=== PATIENT | male | born 1995 | race Caucasian/White ===

== ENCOUNTER 2017-01-03 00:43 | Emergency (ER) | payer OTHER ==
[2017-01-03] MEDS ORDERED: Ondansetron INJ* 2 MG/ML VIAL IV ONE (01:23)
[2017-01-03] MEDS: NS 0.9% 1000 ML* 3,000 ML IV ONE ×2 (01:37→02:56)
[2017-01-03 02:00] LABS: Hematocrit 53 % (42-52); Hemoglobin 17.6 g/dl (14.0-18.0); Mean Corpuscular HGB Conc 33 g/dl (31-36); Mean Corpuscular Hemoglobin 27 pg (27-31); Mean Corpuscular Volume 81 fL (80-94); Mean Platelet Volume 9 um3 (7.4-10.4); Red Blood Count 6.55 10^6/ul (4.0-5.4); Red Cell Distribution Width 14 % (10.5-15); White Blood Count 10.8 10^3/ul (3.5-10.8)
[2017-01-03 02:11] LABS: ALT 32 U/L (7-52); AST 22 U/L (13-39); Albumin 5.5 g/dL (3.2-5.2); Alkaline Phosphatase 59 U/L (34-104); Anion Gap 13 mmol/L (2-11); BUN/Creatinine Ratio 13.2 (8-20); Blood Urea Nitrogen 16 mg/dL (6-24); C Reactive Protein 6.39 mg/L (< 5.00); CO2 Carbon Dioxide 24 mmol/L (22-32); Calcium 10.4 mg/dL (8.6-10.3); Chloride 100 mmol/L (101-111); EGFR African American 98.3 (>60); EGFR Non-African American 76.5 (>60); Globulin 3.6 g/dL (2-4); Glucose 141 mg/dL (70-100); Lipase < 10 U/L (11.0-82.0); Potassium 4.3 mmol/L (3.5-5.0); Sodium 137 mmol/L (133-145); Total Protein 9.1 g/dL (6.4-8.9)
[2017-01-03] MEDS ORDERED: Ondansetron ODT TAB* 4 MG PO ONE (03:17)
--- NOTE | 2017-01-03 03:26 | ED ---
Leandro Lazar Adam, scribed for Aayush Davis MD on 01/03/17 at 0133 . GI/ HPI - HPI Summary HPI Summary: Pt is a 21 year old male presenting with N/V/D since 18:30. He also reports intermittent abdominal cramps and he believes he has seen blood in his emesis and in his stool. He describes the stool as watery diarrhea that is the color of blood. He reports 8 episodes of vomiting. He denies fever. - History of Current Complaint Chief Complaint: EDNauseaVomitDiarrh Time Seen by Provider: 01/03/17 01:18 Stated Complaint: FLU LIKE SYMPTOMS Hx Obtained From: Patient Onset/Duration: Started Hours Ago, Atraumatic, Still Present Timing: Constant, Lasting Hours Severity: Moderate Current Severity: Moderate Pain Intensity: 4 Location of Pain: Diffuse Pain Characteristics: Cramping Associated Signs and Symptoms: Positive: Hematemesis, Nausea, Vomiting, Blood w/ Stool, Diarrhea Aggravating Factor(s): Nothing Alleviating Factor(s): Nothing - Allergy/Home Medications Allergies/Adverse Reactions: Allergies Allergy/AdvReac Type Severity Reaction Status Date / Time No Known Allergies Allergy Verified 01/03/17 01:01 PMH/Surg Hx/FS Hx/Imm Hx - Immunization History Date of Tetanus Vaccine: utd Date of Influenza Vaccine: unk Infectious Disease History: No Infectious Disease History: Denies: Traveled Outside the [place] in Last 30 Days - Family History Known Family History: Positive: Unknown - Social History Occupation: Student Lives: With Family - Fraternity house Alcohol Use: None Hx Substance Use: No Substance Use Type: Reports: None Hx Tobacco Use: No Smoking Status (MU): Never Smoked Tobacco Review of Systems Negative: Fever Positive: Abdominal Pain, Vomiting, Diarrhea, Nausea, Other - Blood in emesis/ stool All Other Systems Reviewed And Are Negative: Yes Physical Exam Triage Information Reviewed: Yes Vital Signs On Initial Exam: Initial Vitals Temp Pulse Resp BP Pulse Ox 98.8 F 90 16 112/68 99 01/03/17 00:55 01/03/17 00:55 01/03/17 00:55 01/03/17 00:55 01/03/17 00:55 Vital Signs Reviewed: Yes Appearance: Positive: Well-Appearing, No Pain Distress Skin: Positive: Pale Head/Face: Positive: Normal Head/Face Inspection Eyes: Positive: EOMI, CECI ENT: Positive: Other - Dry oral mucosa Neck: Positive: Supple, Nontender Respiratory/Lung Sounds: Positive: Clear to Auscultation, Breath Sounds Present Cardiovascular: Positive: RRR Abdomen Description: Positive: Nontender, Soft Bowel Sounds: Positive: Hypoactive Musculoskeletal: Positive: Normal, Strength/ROM Intact Neurological: Positive: Normal, Sensory/Motor Intact, Alert, Oriented to Person Place, Time Psychiatric: Positive: Affect/Mood Appropriate - John Coma Scale Coma Scale Total: 15 Diagnostics - Vital Signs Vital Signs Temp Pulse Resp BP Pulse Ox 01/03/17 00:55 98.8 F 90 16 112/68 99 - Laboratory Lab Results: Lab Results 01/03/17 01/03/17 01/03/17 Range/Units 01:25 01:25 01:25 WBC 10.8 (3.5-10.8) 10^3/ul RBC 6.55 H (4.0-5.4) 10^6/ul Hgb 17.6 (14.0-18.0) g/dl Hct 53 H (42-52) % MCV 81 (80-94) fL MCH 27 (27-31) pg MCHC 33 (31-36) g/dl RDW 14 (10.5-15) % Plt Count 159 (150-450) 10^3/ul MPV 9 (7.4-10.4) um3 Neut % (Auto) 91.2 H (38-83) % Lymph % (Auto) 2.5 L (25-47) % [place] % (Auto) 5.6 (1-9) % Eos % (Auto) 0.3 (0-6) % Baso % (Auto) 0.4 (0-2) % Absolute Neuts (auto) 9.8 H (1.5-7.7) 10^3/ul Absolute Lymphs (auto) 0.3 L (1.0-4.8) 10^3/ul Absolute Monos (auto) 0.6 (0-0.8) 10^3/ul Absolute Eos (auto) 0 (0-0.6) 10^3/ul Absolute Basos (auto) 0 (0-0.2) 10^3/ul Absolute Nucleated RBC 0.02 10^3/ul Nucleated RBC % 0.2 INR (Anticoag Therapy) 0.99 (0.89-1.11) APTT 26.9 (26.0-36.3) seconds Sodium 137 (133-145) mmol/L Potassium 4.3 (3.5-5.0) mmol/L Chloride 100 L (101-111) mmol/L Carbon Dioxide 24 (22-32) mmol/L Anion Gap 13 H (2-11) mmol/L BUN 16 (6-24) mg/dL Creatinine 1.21 H (0.67-1.17) mg/dL Est GFR ( Amer) 98.3 (>60) Est GFR (Non-Af Amer) 76.5 (>60) BUN/Creatinine Ratio 13.2 (8-20) Glucose 141 H (70-100) mg/dL Lactic Acid (0.5-2.0) mmol/L Calcium 10.4 H (8.6-10.3) mg/dL Total Bilirubin 0.80 (0.2-1.0) mg/dL AST 22 (13-39) U/L ALT 32 (7-52) U/L Alkaline Phosphatase 59 (34-104) U/L C-Reactive Protein 6.39 H (< 5.00) mg/L Total Protein 9.1 H (6.4-8.9) g/dL Albumin 5.5 H (3.2-5.2) g/dL Globulin 3.6 (2-4) g/dL Albumin/Globulin Ratio 1.5 (1-3) Lipase < 10 L (11.0-82.0) U/L 01/03/17 Range/Units 01:25 WBC (3.5-10.8) 10^3/ul RBC (4.0-5.4) 10^6/ul Hgb (14.0-18.0) g/dl Hct (42-52) % MCV (80-94) fL MCH (27-31) pg MCHC (31-36) g/dl RDW (10.5-15) % Plt Count (150-450) 10^3/ul MPV (7.4-10.4) um3 Neut % (Auto) (38-83) % Lymph % (Auto) (25-47) % [place] % (Auto) (1-9) % Eos % (Auto) (0-6) % Baso % (Auto) (0-2) % Absolute Neuts (auto) (1.5-7.7) 10^3/ul Absolute Lymphs (auto) (1.0-4.8) 10^3/ul Absolute Monos (auto) (0-0.8) 10^3/ul Absolute Eos (auto) (0-0.6) 10^3/ul Absolute Basos (auto) (0-0.2) 10^3/ul Absolute Nucleated RBC 10^3/ul Nucleated RBC % INR (Anticoag Therapy) (0.89-1.11) APTT (26.0-36.3) seconds Sodium (133-145) mmol/L Potassium (3.5-5.0) mmol/L Chloride (101-111) mmol/L Carbon Dioxide (22-32) mmol/L Anion Gap (2-11) mmol/L BUN (6-24) mg/dL Creatinine (0.67-1.17) mg/dL Est GFR ( Amer) (>60) Est GFR (Non-Af Amer) (>60) BUN/Creatinine Ratio (8-20) Glucose (70-100) mg/dL Lactic Acid 1.5 (0.5-2.0) mmol/L Calcium (8.6-10.3) mg/dL Total Bilirubin (0.2-1.0) mg/dL AST (13-39) U/L ALT (7-52) U/L Alkaline Phosphatase (34-104) U/L C-Reactive Protein (< 5.00) mg/L Total Protein (6.4-8.9) g/dL Albumin (3.2-5.2) g/dL Globulin (2-4) g/dL Albumin/Globulin Ratio (1-3) Lipase (11.0-82.0) U/L Result Diagrams: 01/03/17 01:25 01/03/17 01:25 Lab Statement: Any lab studies that have been ordered have been reviewed, and results considered in the medical decision making process. GIGU Course/Dx - Course Assessment/Plan: IMPROVED IN ED WITH IVF/ZOFRAN. TOLERATED PO IN ED. DISCUSSED RESULTS WITH PATIENT. DISCHARGE HOME STABLE. - Diagnoses Provider Diagnoses: Dehydration, Vomiting and diarrhea Discharge - Discharge Plan Condition: Stable Disposition: HOME Prescriptions: Ondansetron ODT TAB* [Zofran Odt TAB*] 4 mg PO Q6H PRN #10 tab.odt PRN Reason: Nausea Patient Education Materials: Dehydration (ED), Acute Nausea and Vomiting (ED) Referrals: [facility] [Outside] Additional Instructions: FOLLOW UP WITH [facility]. RETURN TO THE EMERGENCY DEPARTMENT FOR ANY WORSENING OF YOUR CONDITION; PAIN, FEVER, DEHYDRATION, YOU FEEL ILL OR QUESTIONS OR CONCERNS. The documentation as recorded by the Leandro paul Adam accurately reflects the service I personally performed and the decisions made by me, Aayush Davis MD.
[2017-01-03 03:59] VITALS: BP 115/61
[2017-01-03 04:12] LABS: Urine Bacteria Absent (Absent); Urine Bilirubin Negative (Negative); Urine Glucose Negative (Negative); Urine Nitrite Negative (Negative)
== END 2017-01-03 03:58 | disposition home or self-care (01) ==
LOC: ED 00:43
DX: K92.0 Hematemesis (principal); R11.2 Nausea with vomiting, unspecified; R19.7 Diarrhea, unspecified; R10.9 Unspecified abdominal pain; E86.0 Dehydration
CPT/HCPCS: 36415; 80053; 81003; 81015; 83605; 83690; 85025; 85610; 85730; 86140; 96374; 96375; 99283; A9270-GY; J2405